=== PATIENT | female | born 1975 | race Caucasian/White ===

== ENCOUNTER 2023-04-04 00:23 | Inpatient (IN) | payer SELFPAY ==
[~2023-04-04] VITALS: Ht 162.6 cm; Wt 70.0 kg
[~2023-04-04 00:23] MED LIST: AMLO10TA OR; CELE40TA OR; IBUP800T OR; LISI20TA5 OR
[2023-04-04 02:30] VITALS: BP 136/86; TEMP 99.1; O2SAT 99
[2023-04-04] MEDS ORDERED: HYDROMORPHONE HCL 0.5 MG/ 0.5 ML SYRINGE IV PRN (03:10)
[2023-04-04] MEDS ORDERED: ONDANSETRON 4MG 2ML VIAL IV PRN (03:10)
[2023-04-04] MEDS ORDERED: SODIUM CHLORIDE 0.9% 1000ML IV SCH (03:10)
[2023-04-04] MEDS: HYDROMORPHONE HCL 0.5 MG/ 0.5 ML SYRINGE IV PRN ×3 (03:37→11:41)
[2023-04-04] MEDS ORDERED: ACETAMINOPHEN *IV* 1,000 MG in IV 1 EA IV ONE (04:00)
[2023-04-04] MEDS ORDERED: FLON1SPR NARES (04:23)
[2023-04-04] MEDS ORDERED: VITA250T7 PO (04:23)
[2023-04-04] MEDS ORDERED: CELE20TA PO (04:23)
[2023-04-04] MEDS ORDERED: ZYRTTAB8 PO (04:23)
[2023-04-04] MEDS ORDERED: EXCETAB32 PO (04:23)
[2023-04-04] MEDS ORDERED: VITMTA PO (04:23)
[2023-04-04] MEDS ORDERED: AMLO1TAB25 PO (04:23)
[2023-04-04] MEDS ORDERED: HOME MED LIST COMPLETE! XX SCH (04:25)
[2023-04-04] MEDS: LR 1,000 ML IV SCH ×3 (04:40→19:19)
[2023-04-04 06:00] VITALS: BP 131/86; TEMP 99.1; O2SAT 97
[2023-04-04 06:05] LABS: HEMATOCRIT 38.6 % (36.0-47.0); HEMOGLOBIN 12.5 g/dl (12.0-15.5); MEAN CORPUSCULAR HEMOGLOBIN 27.5 pg (27.0-33.0); MEAN CORPUSCULAR HGB CONC 32.4 g/dl (32.0-36.5); MEAN CORPUSCULAR VOLUME 84.8 fl (80.0-96.0); PLATELET COUNT, AUTOMATED 336 10^3/uL (150-450); RED BLOOD COUNT 4.55 10^6/uL (4.00-5.40); WHITE BLOOD COUNT 13.4 10^3/uL (4.0-10.0)
[2023-04-04] MEDS: PIPERACILLIN/TAZOBACTAM SOD 3.375 GM in D5W MINI-BAG PLUS 50 ML IV SCH ×4 (06:12→23:41)
[2023-04-04 06:34] LABS: LIPASE 27 U/L (12-53)
[2023-04-04 06:36] LABS: ALBUMIN 3.8 G/DL (3.2-5.2); ALKALINE PHOSPHATASE 62 U/L (46-116); ALT/SGPT 19 U/L (7.0-40); AST/SGOT < 8 U/L (<34); BILIRUBIN,TOTAL 0.8 MG/DL (0.3-1.2); BLOOD UREA NITROGEN 8 MG/DL (9-23); CALCIUM LEVEL 8.4 MG/DL (8.5-10.1); CARBON DIOXIDE LEVEL 24 MMOL/L (20-31); CHLORIDE LEVEL 107 MMOL/L (98-107); CREATININE FOR GFR 0.51 MG/DL (0.55-1.30); GLOMERULAR FILTRATION RATE > 60.0 (>58); GLUCOSE, FASTING 100 MG/DL (60-100); POTASSIUM SERUM 3.7 MMOL/L (3.5-5.1); SODIUM LEVEL 140 MMOL/L (136-145); TOTAL PROTEIN 6.2 G/DL (5.7-8.2)
[2023-04-04] MEDS ORDERED: PANTOPRAZOLE 40MG VIAL IV SCH (09:00)
[2023-04-04] MEDS: SUCRALFATE 1 GM TAB PO SCH ×4 (09:57→21:11)
[2023-04-04 12:00] VITALS: BP 128/78; TEMP 98.6; O2SAT 100
[2023-04-04] MEDS: KETOROLAC 30 MG/ML 1ML VIAL IV SCH ×2 (13:30→18:41)
[2023-04-04] MEDS ORDERED: ISOVUE-370 76% 100ML VIAL As Ordered ONE (13:32)
[2023-04-04] MEDS: GASTROGRAFIN SOLUTION 30ML PO SCH (13:38)
[2023-04-04 14:16] VITALS: BP 127/78; TEMP 97.9; O2SAT 100
[2023-04-04 15:41] VITALS: BP 127/78
[2023-04-04] MEDS: CitaloPRAM (CeleXA) 20 MG TAB PO SCH (15:41)
[2023-04-04 20:00] VITALS: BP_SYST 123; BP_SYST 131; BP_DIAS 67; BP_DIAS 73; TEMP 98.9; TEMP 99.3; O2SAT 94; O2SAT 98
[2023-04-04] MEDS: PANTOPRAZOLE 40MG VIAL IV SCH (21:11)
[2023-04-05] VITALS: BP 122/75; TEMP 99.7; O2SAT 97
[2023-04-05] MEDS: KETOROLAC 30 MG/ML 1ML VIAL IV SCH ×5 (00:59→23:19)
[2023-04-05] MEDS: PIPERACILLIN/TAZOBACTAM SOD 3.375 GM in D5W MINI-BAG PLUS 50 ML IV SCH ×4 (05:37→23:19)
[2023-04-05] MEDS: LR 1,000 ML IV SCH (05:37)
[2023-04-05 06:00] VITALS: TEMP 98.3
[2023-04-05 07:19] LABS: BASO # 0.1 10^3/uL (0.0-0.2); BASO % 0.9 % (0.0-1.0); EOS # 0.2 10^3/uL (0.0-0.5); EOS % 1.6 % (0.0-3.0); HEMATOCRIT 35.6 % (36.0-47.0); HEMOGLOBIN 11.3 g/dl (12.0-15.5); LYMPH # 1.4 10^3/uL (1.5-5.0); LYMPH % 13.8 % (24.0-44.0); MEAN CORPUSCULAR HEMOGLOBIN 27.4 pg (27.0-33.0); MEAN CORPUSCULAR HGB CONC 31.7 g/dl (32.0-36.5); MEAN CORPUSCULAR VOLUME 86.2 fl (80.0-96.0); MONO # 1.3 10^3/uL (0.0-0.8); MONO % 12.9 % (2.0-8.0); NEUTROPHILS % 70.3 % (36.0-66.0); PLATELET COUNT, AUTOMATED 296 10^3/uL (150-450); RED BLOOD COUNT 4.13 10^6/uL (4.00-5.40); WHITE BLOOD COUNT 9.9 10^3/uL (4.0-10.0)
[2023-04-05 07:38] LABS: ALBUMIN 3.3 G/DL (3.2-5.2); ALKALINE PHOSPHATASE 82 U/L (46-116); ALT/SGPT 61 U/L (7.0-40); AST/SGOT 46 U/L (<34); BILIRUBIN,TOTAL 0.6 MG/DL (0.3-1.2); BLOOD UREA NITROGEN 7 MG/DL (9-23); CALCIUM LEVEL 8.6 MG/DL (8.5-10.1); CARBON DIOXIDE LEVEL 28 MMOL/L (20-31); CHLORIDE LEVEL 107 MMOL/L (98-107); GLOMERULAR FILTRATION RATE > 60.0 (>58); GLUCOSE, FASTING 103 MG/DL (60-100); POTASSIUM SERUM 3.5 MMOL/L (3.5-5.1); SODIUM LEVEL 141 MMOL/L (136-145); TOTAL PROTEIN 5.9 G/DL (5.7-8.2)
[2023-04-05 08:00] VITALS: BP 133/81; TEMP 98.1; O2SAT 97
[2023-04-05] MEDS: CitaloPRAM (CeleXA) 20 MG TAB PO SCH (08:49)
[2023-04-05] MEDS: SUCRALFATE 1 GM TAB PO SCH ×4 (08:49→21:36)
[2023-04-05] MEDS: PANTOPRAZOLE 40MG VIAL IV SCH ×2 (08:49→21:36)
[2023-04-05] MEDS ORDERED: LR 1,000 ML IV SCH (12:35)
[2023-04-05 16:00] VITALS: BP 130/73; TEMP 99.1; O2SAT 98
[2023-04-05 20:07] VITALS: BP 134/74; TEMP 98.6; O2SAT 100
[2023-04-05] MEDS ORDERED: ENOXAPARIN 40MG/0.4ML SYRINGE (J1650 PER 10MG) SC SCH (21:00)
[2023-04-06] VITALS: BP 125/79; TEMP 99.1; O2SAT 100
[2023-04-06 04:00] VITALS: BP 125/78; TEMP 98.6; O2SAT 98
[2023-04-06] MEDS: PIPERACILLIN/TAZOBACTAM SOD 3.375 GM in D5W MINI-BAG PLUS 50 ML IV SCH (05:48)
[2023-04-06 06:51] LABS: BASO # 0.1 10^3/uL (0.0-0.2); EOS # 0.2 10^3/uL (0.0-0.5); EOS % 1.6 % (0.0-3.0); HEMATOCRIT 35.4 % (36.0-47.0); HEMOGLOBIN 11.2 g/dl (12.0-15.5); LYMPH # 1.3 10^3/uL (1.5-5.0); LYMPH % 14.4 % (24.0-44.0); MEAN CORPUSCULAR HEMOGLOBIN 27.2 pg (27.0-33.0); MEAN CORPUSCULAR HGB CONC 31.6 g/dl (32.0-36.5); MEAN CORPUSCULAR VOLUME 85.9 fl (80.0-96.0); MONO # 1.1 10^3/uL (0.0-0.8); MONO % 11.7 % (2.0-8.0); NEUTROPHILS # 6.5 10^3/uL (1.5-8.5); PLATELET COUNT, AUTOMATED 310 10^3/uL (150-450); RED BLOOD COUNT 4.12 10^6/uL (4.00-5.40); WHITE BLOOD COUNT 9.1 10^3/uL (4.0-10.0)
[2023-04-06] MEDS: KETOROLAC 30 MG/ML 1ML VIAL IV SCH (07:15)
[2023-04-06 07:21] LABS: ALBUMIN 3.5 G/DL (3.2-5.2); ALKALINE PHOSPHATASE 81 U/L (46-116); ALT/SGPT 39 U/L (7.0-40); AST/SGOT 25 U/L (<34); BILIRUBIN,TOTAL 0.5 MG/DL (0.3-1.2); BLOOD UREA NITROGEN < 5 MG/DL (9-23); CALCIUM LEVEL 8.8 MG/DL (8.5-10.1); CARBON DIOXIDE LEVEL 30 MMOL/L (20-31); CHLORIDE LEVEL 105 MMOL/L (98-107); CREATININE FOR GFR 0.53 MG/DL (0.55-1.30); GLOMERULAR FILTRATION RATE > 60.0 (>58); GLUCOSE, FASTING 96 MG/DL (60-100); POTASSIUM SERUM 3.6 MMOL/L (3.5-5.1); SODIUM LEVEL 141 MMOL/L (136-145); TOTAL PROTEIN 6.2 G/DL (5.7-8.2)
[2023-04-06 08:00] VITALS: BP 139/82; TEMP 98.5; O2SAT 98
[2023-04-06] MEDS: PANTOPRAZOLE 40MG VIAL IV SCH (08:22)
[2023-04-06] MEDS: CitaloPRAM (CeleXA) 20 MG TAB PO SCH (08:22)
[2023-04-06] MEDS: SUCRALFATE 1 GM TAB PO SCH (08:22)
[2023-04-06] MEDS ORDERED: METR-265 PO (11:58)
[2023-04-06] MEDS ORDERED: PROT1TAB2 PO (11:58)
[2023-04-06] MEDS ORDERED: CIPR-249 PO (11:58)
[2023-04-06] MEDS ORDERED: ONDA4TAB6 PO (11:58)
[2023-04-06] MEDS ORDERED: OXYC1TAB23 PO (11:58)
== END 2023-04-06 13:13 | disposition home or self-care (01) ==
LOC: M MS4PR 02:30 → M PED 19:41
PROVIDERS: ADMIT Internal Medicine; ATTEND Internal Medicine
DX: K81.0 Acute cholecystitis (principal); I10 Essential (primary) hypertension; F32.A Depression, unspecified; G43.909 Migraine, unspecified, not intractable, without status migrainosus; Z79.899 Other long term (current) drug therapy; K57.30 Diverticulosis of large intestine without perforation or abscess without bleeding; Z87.891 Personal history of nicotine dependence

== ENCOUNTER 2023-05-19 08:45 | Day surgery (SDC) | payer SELFPAY ==
[~2023-05-19] VITALS: Ht 162.6 cm; Wt 65.3 kg
[~2023-05-19 08:45] MED LIST changes: +AMLO1TAB25 PO; +B-12100010 PO; +CELE20TA PO; +CIPR-249 PO; +CITA20TA7 PO; +EXCETAB32 PO; +FLON1SPR NARES; +METR-265 PO; +ONDA4TAB6 PO; +OXYC1TAB23 PO; +PROT1TAB2 PO; +THERTAB52 PO; +VITA250T7 PO; +VITMTA PO; +ZYRTTAB8 PO; +ceFAZolin SOD 2 GM in IV 1 EA IV ONE
[2023-05-19] MEDS ORDERED: LR 1,000 ML IV SCH ×2 (09:15→11:50)
[2023-05-19] MEDS ORDERED: ACET-683 PO (09:38)
[2023-05-19] MEDS ORDERED: LIDOCAINE 2% 100MG/5ML SDV (FOR ANES.) As Ordered ONE (10:18)
[2023-05-19] MEDS ORDERED: ROCURONIUM BROMIDE 50MG/5ML VIAL As Ordered ONE (10:18)
[2023-05-19] MEDS ORDERED: propofoL 200 MG/20 ML VIAL As Ordered ONE (10:18)
[2023-05-19] MEDS ORDERED: MIDAZOLAM INJ 2MG/2ML VIAL As Ordered ONE (10:19)
[2023-05-19] MEDS ORDERED: ONDANSETRON 4MG 2ML VIAL As Ordered ONE (10:19)
[2023-05-19] MEDS ORDERED: fentaNYL 250 MCG/5 ML INJECTION As Ordered ONE (10:19)
[2023-05-19] MEDS ORDERED: KETOROLAC 60MG 2ML VIAL As Ordered ONE (10:19)
[2023-05-19] MEDS ORDERED: SUGAMMADEX SODIUM 500 MG/5 ML VIAL (BRIDION) As Ordered ONE (10:25)
[2023-05-19] MEDS ORDERED: SEVOFLURANE INHAL SOLN 250 ML BTL As Ordered ONE (10:29)
[2023-05-19] MEDS ORDERED: ACETAMINOPHEN 1000MG 100ML IV BAG As Ordered ONE (10:53)
[2023-05-19] MEDS ORDERED: PHENYLephrine 500MCG 5ML (100MCG/ML) SYRINGE As Ordered ONE (11:09)
[2023-05-19] MEDS ORDERED: ePHEDrine SULFATE 25 MG/5 ML(5MG/ML) SYRINGE As Ordered ONE (11:19)
[2023-05-19] MEDS ORDERED: dexmedeTOMIDine (4MCG/ML)200MCG/50ML BTL (PRECEDEX) As Ordered ONE (11:43)
[2023-05-19] MEDS ORDERED: oxyCODONE 5MG TAB PO PRN (11:50)
[2023-05-19] MEDS ORDERED: HYDROMORPHONE HCL 0.5 MG/ 0.5 ML SYRINGE IV PRN (11:50)
[2023-05-19] MEDS ORDERED: ONDANSETRON 4MG 2ML VIAL IV PRN (11:50)
[2023-05-19] MEDS ORDERED: fentaNYL 100 MCG/2 ML INJECTION IV PRN (11:50)
[2023-05-19] MEDS ORDERED: traMADol 50 MG TAB PO PRN (12:15)
[2023-05-19] MEDS ORDERED: NS 1,000 ML IV SCH (12:15)
[2023-05-19 12:49] VITALS: BP 121/72; TEMP 97.9; O2SAT 97
== END 2023-05-19 13:10 | disposition home or self-care (01) ==
LOC: M SDC 08:45
PROVIDERS: ATTEND Surgery
DX: K80.10 Calculus of gallbladder with chronic cholecystitis without obstruction (principal); I10 Essential (primary) hypertension; K57.92 Diverticulitis of intestine, part unspecified, without perforation or abscess without bleeding; D64.9 Anemia, unspecified; F41.9 Anxiety disorder, unspecified; Z79.899 Other long term (current) drug therapy; R51.9 Headache, unspecified
CPT/HCPCS: 47562; 88304; J0131; J0665; J0690; J1100; J1885; J2250; J2371; J2405; J3010